=== PATIENT | female | born 1950 | race Caucasian/White ===

== ENCOUNTER 2019-08-08 07:33 | Emergency (ER) | payer OTHER, SELFPAY ==
--- NOTE | 2019-08-08 07:40 | ED_ITS ---
HPI - Female Genitourinary General Chief complaint: Urogenital-Female Stated complaint: ovarian cyst right side problem Time Seen by Provider: 08/08/19 07:33 Source: patient and family Mode of arrival: Ambulatory Limitations: no limitations History of Present Illness HPI Narrative: 61-year-old female nonsmoker with history of hypertension and a known large right ovarian cyst presents with a chief complaint of a sudden onset right lower quadrant and some right flank pain since last night. Patient has been nauseated but denies any vomiting. She states that at times her pain is worse with changing position and other times it seems to have a mind of its own. It does remind her of prior experiences with ovarian cyst pain, the last visit to an emergency department was in March at [facility]. She is followed by solar energy consultant and designer at the [facility] and most recently her cyst was found to be 5 cm per the patient. She states that urinating and bowel movements seem to worsen her symptoms as well MD Complaint: pelvic pain Onset (ago): hour(s) Location: RLQ Female Urogenital Radiation: R Flank Severity: severe Severity scale (1-10): 8 Quality: Sharp Duration: intermittent Relieving factors: none Exacerbating factors: urination and movement Urinary symptoms: Flank Pain Patient : No Related Data Home Medications Medication Instructions Recorded Confirmed ascorbate calcium (vitamin C) 500 1 gram PO Q6H 09/06/18 09/06/18 mg tablet ascorbic acid (vitamin C) 1,000 mg 1 gram PO Q6H 09/06/18 09/06/18 tablet aspirin 81 mg tablet,delayed 81 mg PO DAILY 09/06/18 09/06/18 release cholecalciferol (vitamin D3) 50 2,000 unit PO DAILY 09/06/18 09/06/18 mcg (2,000 unit) capsule fenofibrate micronized 134 mg 134 mg PO DAILY 09/06/18 08/08/19 capsule lovastatin 40 mg tablet 40 mg PO DAILY 09/06/18 08/08/19 mecobalamin (vitamin B12) 1,000 1,000 mcg SL DAILY 09/06/18 09/06/18 mcg disintegrating tablet,sublingual multivitamin 1 tab PO DAILY 09/06/18 09/06/18 valacyclovir 500 mg tablet 500 mg PO DAILY 09/06/18 09/06/18 losartan-hydrochlorothiazide 0.5 tab PO DAILY 08/08/19 08/08/19 Previous Rx's Medication Instructions Recorded ketorolac 10 mg PO Q6H PRN #14 tab 08/08/19 ondansetron 4 mg PO TID-QID PRN #10 tab 08/08/19 Allergies Allergy/AdvReac Type Severity Reaction Status Date / Time Penicillins Allergy Severe trouble Verified 08/08/19 07:43 breathing Review of Systems Constitutional Constitutional: Denies chills, Denies fatigue, Denies fever(s), Denies frequent falls, Denies lethargy and Denies weakness Eyes Eyes: Denies change in vision, Denies eye discharge, Denies irritation and Denies loss of vision ENT Ears, Nose, Mouth, and Throat: Denies change in voice, Denies dizziness, Denies neck pain, Denies sore throat and Denies throat swelling Cardiovascular Cardiovascular: Denies chest pain, Denies irregular heart rhythm, Denies lightheadedness, Denies palpitations, Denies dyspnea, Denies dyspnea on exertion and Denies orthopnea Respiratory Respiratory: Denies cough, Denies dyspnea, Denies dyspnea on exertion and Denies wheezing Gastrointestinal Gastrointestinal: Denies abdominal pain, Denies change in bowel habits, Denies diarrhea, Reports nausea and Denies vomiting Genitourinary Genitourinary: Denies hematuria, Reports pelvic pain, Reports flank pain, Denies urinary incontinence and Denies urinary urgency Musculoskeletal Musculoskeletal: Denies back pain, Denies muscle weakness, Denies neck pain, Denies numbness and Denies tingling Integumentary/Breasts Skin/Breast: Denies pruritus, Denies erythema, Denies rash and Denies wounds Neurologic Neurologic: Denies behavioral changes, Denies confusion, Denies dizziness, Denies frequent falls, Denies loss of vision, Denies numbness, Denies tingling and Denies weakness Psychiatric Psychiatric: Denies anxiety, Denies behavioral changes, Denies confusion, Denies depression, Denies homicidal ideation and Denies suicidal ideation Endocrine Endocrine: Denies fatigue, Denies flushing and Denies palpitations Hematologic/Lymphatic Hematologic/Lymphatic: Denies easy bruising Allergic/Immunologic Allergic/Immunologic: Denies urticaria, Denies throat swelling and Denies wheezing Patient History Medical History (Updated 08/08/19 @ 11:09 by Min Iglesias DO) Ovarian cyst (Acute) Surgical History (Updated 08/08/19 @ 08:06 by Min Iglesias DO) History of section (Acute) Hx of tubal ligation (Acute) marital status: housing: house Smoking Status: Never smoker Substance Use Type: does not use Exam Narrative Exam Narrative: GENERAL: [69] year old patient appears stated age. Well- nourished, well-developed patient, in mild distress. HEAD: Atraumatic. Normocephalic. EYES: Pupils equal round and reactive. Extraocular motions intact. No scleral icterus. No injection or drainage. ENT: Nose without bleeding, purulent drainage. Throat without erythema, tonsillar hypertrophy or exudate. Airway patent. NECK: Trachea midline. Non tender CARDIOVASCULAR: Regular rate and rhythm without murmurs, gallops, or rubs. RESPIRATORY: Clear to auscultation. Breath sounds equal bilaterally. No wheezes, rales, or rhonchi. GASTROINTESTINAL: Abdomen soft, tender in RLQ, nondistended. EXTREMITIES: No edema or joint tenderness. BACK: Nontender without deformity or crepitance. No flank tenderness. NEURO: AOx3. SKIN: No rash or erythema of visible areas Initial Vital Signs Initial Vital Signs: Vital Signs Temperature 97.8 F 08/08/19 07:43 Pulse Rate 72 08/08/19 07:43 Respiratory Rate 14 08/08/19 07:43 Blood Pressure 160/85 H 08/08/19 07:43 Pulse Oximetry 98 08/08/19 07:43 Course Orders Ordered: ED Orders 08/08/19 07:50 US pelvic complete Stat 08/08/19 08:10 Basic Metabolic Panel Stat Complete Blood Count AUTO DIFF Stat Discontinued Medications Sodium Chloride (Normal Saline 0.9%) 1,000 mls @ 1,000 mls/hr IV BOLUS ONE Stop: 08/08/19 08:48 Last Infusion: 08/08/19 10:10 Dose: 0 mls/hr Documented by: Admin: 08/08/19 08:02 Dose: 1,000 mls/hr Documented by: LILLY Ketorolac Tromethamine (Toradol) 15 mg IV NOW ONE Stop: 08/08/19 07:50 Last Admin: 08/08/19 08:06 Dose: 15 mg Documented by: LILLY Ondansetron HCl (Zofran) 4 mg IV Q4HR PRN PRN Reason: Nausea And Vomiting Last Admin: 08/08/19 08:01 Dose: 4 mg Documented by: LILLY Reevaluation(s) Reevaluation #1: patient feeling better after toradol Discussion with patient's own solar energy consultant and designer. Today's findings are very similar to her prior episodes and imaging is suggestive of no change that would prompt urgent evaluation. Time: 08:57 Vital Signs Vital signs: Vital Signs - 8 hr 08/08/19 07:43 08/08/19 11:12 Temperature 97.8 F Pulse Rate 72 58 L Respiratory Rate 14 18 Blood Pressure 160/85 H Blood Pressure [Right Arm] 123/72 Pulse Oximetry 98 99 MDM - Female Genitourinary Lab Data Result diagrams: 08/08/19 08:10 08/08/19 08:10 Labs: Lab Results 08/08/19 08/08/19 Range/Units 08:10 08:10 WBC 6.6 (4.5-11.0) X10^3/uL RBC 4.18 (4.0-5.2) X10^6/uL Hgb 13.6 (12.0-16.0) g/dL Hct 39.9 (36-46) % MCV 95.3 (80-100) fL MCH 32.5 (26-34) PG MCHC 34.1 (30-36) % RDW 13.2 (11.6-14.8) % Plt Count 220 (150-400) X10^3/uL Neut % (Auto) 72.3 (50-75) % Lymph % (Auto) 18.2 L (25-40) % Morton % (Auto) 7.2 (3-14) % Eos % (Auto) 2.0 (2-4) % Baso % (Auto) 0.3 (0-2) % Neut # (Auto) 4800 (0168-4674) /uL Lymph # (Auto) 1200 (3636-4682) /uL Morton # (Auto) 500 (0-900) /uL Eos # (Auto) 100 (0-450) /uL Baso # (Auto) 0 (0-100) /uL Sodium 142 (137-145) mmol/L Potassium 4.2 (3.4-5.1) mmol/L Chloride 107 (98-107) mmol/L Carbon Dioxide 28 (22-32) mmol/L BUN 20 H (7-17) mg/dL Creatinine 0.90 (0.52-1.04) mg/dL Estimated GFR > 60.0 (>60) mL/min BUN/Creatinine Ratio 22.2 H (6-22) Glucose 110 (80-110) mg/dL Calcium 11.2 H (8.4-10.2) mg/dL Urine Dip Bedside Urine Glucose Negative Bedside Urine Bilirubin - Negative Bedside Urine Ketone - Negative Urine Specific Matthews 1.015 Bedside Urine Occult Blood - Negative Bedside Urine pH 5.5 Bedside Urine Protein - Negative Bedside Urine Urobilinogen - Negative Bedside Urine Nitrite - Negative Bedside Urine Leukocytes - Negative Esterase Imaging Data US - RESPIRATORY THERAPY MANAGER: Radiologist's Impression: Rachell Zapata 69 F [address] [address] Ultrasound Report Signed Patient: Rachell ZapataMR#: [id number] : 1950cct:[id number] Age/Sex: 69 / FDate of Service: 08/08/19 Loc: ED Accession Number: [id number] Procedure: US pelvic complete Ordering Provider: Min Iglesias D.O. PROCEDURE: US PELVIC COMPLETE INDICATIONS: SEVER RLQ PAIN WITH HISTORY OF CYSTS TECHNIQUE: Real-time scanning was performed of the pelvic organs, with image documentation. Additional endovaginal scanning was necessary due to incomplete visualization of the adnexal and endometrial structures by transabdominal scanning. COMPARISON: None. FINDINGS: Transabdominal scanning: Limited scanning through the kidneys shows no hydronephrosis. No pathologic free abdominal or pelvic fluid. Endovaginal scanning: Uterus: Uterus is normal in size at 3.7 x 2.7 x 3.7 cm. The endometrium measures 15 mm in combined thickness. Ovaries: Ovaries are not well visualized. There is a cystic mass in the midline of the lower pelvis measuring 49 x 35 x 39 mm. There is questionable appearance of nodularity noted along the lateral wall. IMPRESSION: 1. Cystic pelvic mass as described above with questionable nodular focus. Given patient's age, size of cystic mass and questionable nodularity, cystic neoplasm cannot be definitively excluded. RESPIRATORY THERAPY MANAGER consult as well as further evaluation with CT or MRI is recommended. Dictated by: Rachelle Garcia M.D. on 08/08/2019 at 9:08 Discharge Plan Departure Patient Disposition: Home Clinical Impression: Pain of ovary Discharge Date/Time: 08/08/19 11:18 Instructions: DI for Pelvic Pain Activity Restrictions/Additional Instructions: *You have been diagnosed with [right lower quadrant pain secondary to ovarian pain.I've spoken with your solar energy consultant and designer whom is very comfortable with your discharge and looks forward to seeing you on Sunday] *What to do: *Take medications as directed *Follow up with your solar energy consultant and designer on Sunday as planned *Return to ER if you should have any new, worsening or concerning symptoms Prescriptions: New ketorolac 10 mg tablet 10 mg PO Q6H PRN (Reason: pain) Qty: 14 RF: 0 ondansetron 4 mg tablet,disintegrating 4 mg PO TID-QID PRN (Reason: nausea and vomiting) Qty: 10 RF: 0 No Action multivitamin [Daily Multi-Vitamin] tablet 1 tab PO DAILY RF: 0 ascorbic acid (vitamin C) 1,000 mg tablet 1 gram PO Q6H RF: 0 lovastatin 40 mg tablet 40 mg PO DAILY RF: 0 valacyclovir 500 mg tablet 500 mg PO DAILY RF: 0 aspirin [Aspir-81] 81 mg tablet,delayed release (DR/EC) 81 mg PO DAILY RF: 0 fenofibrate micronized 134 mg capsule 134 mg PO DAILY RF: 0 ascorbate calcium (vitamin C) 500 mg tablet 1 gram PO Q6H RF: 0 cholecalciferol (vitamin D3) 2,000 unit capsule 2,000 unit PO DAILY RF: 0 mecobalamin (vitamin B12) 1,000 mcg tablet,disintegrating 1,000 mcg SL DAILY RF: 0 losartan-hydrochlorothiazide 100-25 mg tablet 0.5 tab PO DAILY RF: 0
[2019-08-08 07:43] VITALS: BP 160/85; PULSE 72; RESP 14; TEMP 36.6; O2SAT 98; BMI 31.1
--- NOTE | 2019-08-08 07:50 | DI.US.S_ITS ---
PROCEDURE: US PELVIC COMPLETE INDICATIONS: SEVER RLQ PAIN WITH HISTORY OF CYSTS TECHNIQUE: Real-time scanning was performed of the pelvic organs, with image documentation. Additional endovaginal scanning was necessary due to incomplete visualization of the adnexal and endometrial structures by transabdominal scanning. COMPARISON: None. FINDINGS: Transabdominal scanning: Limited scanning through the kidneys shows no hydronephrosis. No pathologic free abdominal or pelvic fluid. Endovaginal scanning: Uterus: Uterus is normal in size at 3.7 x 2.7 x 3.7 cm. The endometrium measures 15 mm in combined thickness. Ovaries: Ovaries are not well visualized. There is a cystic mass in the midline of the lower pelvis measuring 49 x 35 x 39 mm. There is questionable appearance of nodularity noted along the lateral wall. IMPRESSION: 1. Cystic pelvic mass as described above with questionable nodular focus. Given patient's age, size of cystic mass and questionable nodularity, cystic neoplasm cannot be definitively excluded. TAX LAWYER consult as well as further evaluation with CT or MRI is recommended. Dictated by: Rachelle Garcia M.D. on 08/08/2019 at 9:08 Approved by: Rachelle Garcia M.D. on 08/08/2019 at 9:33
[2019-08-08] MEDS: ONDANSETRON 4 MG/2 ML INJ IV (08:01)
[2019-08-08] MEDS: SODIUM CHLORIDE 0.9% 1,000 ML 1000 ML IV (08:02)
[2019-08-08] MEDS: KETOROLAC 60 MG/2 ML VIAL 15 MG IV (08:06)
[2019-08-08 08:22] LABS: Add Manual Diff / Slide Review NO; Basophils Absolute Auto 0 /uL (0-100); Basophils Percent Auto 0.3 % (0-2); Eosinophils Absolute Auto 100 /uL (0-450); Hematocrit 39.9 % (36-46); Hemoglobin 13.6 g/dL (12.0-16.0); Lymphocytes Absolute Auto 1200 /uL (1100-4500); Lymphocytes Percent Auto 18.2 % (25-40); Mean Corpuscular HGB Conc 34.1 % (30-36); Mean Corpuscular Hemoglobin 32.5 PG (26-34); Mean Corpuscular Volume 95.3 fL (80-100); Monocytes Absolute Auto 500 /uL (0-900); Monocytes Percent Auto 7.2 % (3-14); Neutrophils Absolute Auto 4800 /uL (1500-7000); Neutrophils Percent Auto 72.3 % (50-75); Platelet Count 220 X10^3/uL (150-400); Red Blood Cell Count 4.18 X10^6/uL (4.0-5.2); Red Cell Distribution Width 13.2 % (11.6-14.8); White Blood Cell Count 6.6 X10^3/uL (4.5-11.0)
[2019-08-08 08:29] LABS: BUN Creatinine Ratio 22.2 (6-22); Blood Urea Nitrogen 20 mg/dL (7-17); Calcium 11.2 mg/dL (8.4-10.2); Carbon Dioxide 28 mmol/L (22-32); Chloride 107 mmol/L (98-107); Estimated Glomerular Filt Rate > 60.0 mL/min (>60); Glucose 110 mg/dL (80-110); HEMOLYSIS < 15 (0-50); Potassium 4.2 mmol/L (3.4-5.1); Sodium 142 mmol/L (137-145)
[2019-08-08 11:12] VITALS: BP 123/72; PULSE 58; RESP 18; O2SAT 99
== END 2019-08-08 11:18 | disposition home or self-care (01) ==
PROVIDERS: Emergency Provider Emergency Medicine
DX: N94.89 Other specified conditions associated with female genital organs and menstrual cycle (principal); R10.31 Right lower quadrant pain
CPT/HCPCS: 36415; 76830; 76856; 80048; 81003; 85025; 96361; 96374; 96375; 99284; J1885; J2405

== ENCOUNTER 2019-11-28 06:36 | Emergency (ER) | payer OTHER, SELFPAY ==
[2019-11-28] VITALS (7 sets, daily range): BP systolic 113–155; BP diastolic 66–101; PULSE 54–64; RESP 16–18; TEMP 36.4; O2SAT 93–99; BMI 31.1
--- NOTE | 2019-11-28 07:01 | ED_ITS ---
HPI - Abdominal Pain <Min IglesiasDO - Last Filed: 11/29/19 03:58> General Chief Complaint: Abdominal Pain Stated Complaint: ovarian cyst right side Time Seen by Provider: 11/28/19 06:37 Source: patient Mode of arrival: Ambulatory Limitations: no limitations History of Present Illness HPI narrative: 69-year-old female nonsmoker with history of hypertension and a known right ovarian ?cyst? presents with a chief complaint of relatively sudden onset right lower quadrant pain that started yesterday and radiates to her back. She states this feels similar to prior episodes of when her cyst acts up. She states her pain is worse with motion and improves with rest. She denies any fever, chills nor nausea or vomiting. She denies dysuria, frequency or urgency. She was seen here in the end of July and pelvic ultrasound noted a mass versus cyst and recommended advanced imaging in the form of CT or MRI. That is yet to happen. She has been NPO since yesterday afternoon except for some crackers last evening MD complaint: abdominal pain Onset (ago): hour(s) Pain Consistency: intermittent Location: RLQ Severity: severe Quality: cramping and aching Radiation: R flank Relieving factors: rest Exacerbating factors: movement Associated symptoms: denies other symptoms Related Data Home Medications Medication Instructions Recorded Confirmed aspirin 81 mg tablet,delayed 81 mg PO BEDTIME 09/06/18 11/28/19 release cholecalciferol (vitamin D3) 50 2,000 unit PO BEDTIME 09/06/18 11/28/19 mcg (2,000 unit) capsule fenofibrate micronized 134 mg 134 mg PO BEDTIME 09/06/18 11/28/19 capsule lovastatin 40 mg tablet 40 mg PO BEDTIME 09/06/18 11/28/19 multivitamin 1 tab PO BEDTIME 09/06/18 11/28/19 valacyclovir 500 mg tablet 500 mg PO BEDTIME 09/06/18 11/28/19 losartan-hydrochlorothiazide 0.5 tab PO BEDTIME 08/08/19 11/28/19 Previous Rx's Medication Instructions Recorded ketorolac 10 mg PO Q6H PRN #14 tab 08/08/19 ketorolac 10 mg PO Q6H PRN 5 Days #20 tab 11/28/19 ondansetron HCl [Zofran] 4 mg PO Q6H PRN #15 tab 11/28/19 oxycodone-acetaminophen [Percocet] 1 tab PO Q8H PRN #12 tab 11/28/19 Allergies Allergy/AdvReac Type Severity Reaction Status Date / Time Penicillins Allergy Severe trouble Verified 11/28/19 07:34 breathing Review of Systems <Min Iglesias DO - Last Filed: 11/29/19 03:58> Constitutional Constitutional: Denies chills, Denies fatigue, Denies fever(s), Denies frequent falls, Denies lethargy and Denies weakness Eyes Eyes: Denies change in vision, Denies eye discharge, Denies irritation and Denies loss of vision ENT Ears, Nose, Mouth, and Throat: Denies change in voice, Denies dizziness, Denies neck pain, Denies sore throat and Denies throat swelling Cardiovascular Cardiovascular: Denies chest pain, Denies irregular heart rhythm, Denies lightheadedness, Denies palpitations, Denies dyspnea, Denies dyspnea on exertion and Denies orthopnea Respiratory Respiratory: Denies cough, Denies dyspnea, Denies dyspnea on exertion and Denies wheezing Gastrointestinal Gastrointestinal: Reports abdominal pain, Denies change in bowel habits, Denies diarrhea, Denies nausea and Denies vomiting Musculoskeletal Musculoskeletal: Denies neck pain and Denies numbness Integumentary/Breasts Skin/Breast: Denies pruritus, Denies erythema, Denies rash and Denies wounds Neurologic Neurologic: Denies behavioral changes, Denies confusion, Denies dizziness, Denies frequent falls, Denies loss of vision, Denies numbness and Denies weakness Psychiatric Psychiatric: Denies anxiety, Denies behavioral changes, Denies confusion, Denies depression, Denies homicidal ideation and Denies suicidal ideation Endocrine Endocrine: Denies fatigue, Denies flushing and Denies palpitations Hematologic/Lymphatic Hematologic/Lymphatic: Denies easy bruising Allergic/Immunologic Allergic/Immunologic: Denies urticaria, Denies throat swelling and Denies wheezing Patient History <Min Iglesias DO - Last Filed: 11/29/19 03:58> Medical History Ovarian cyst (Acute) Surgical History History of section (Acute) Hx of tubal ligation (Acute) Social History marital status: housing: house Smoking Status: Never smoker Smoking Status: Never smoker Substance Use Type: does not use Exam <Min Iglesias DO - Last Filed: 11/29/19 03:58> Narrative Exam Narrative: GENERAL: [69] year old patient appears stated age. Well-n ourished, well-developed patient, in mild distress. HEAD: Atraumatic. Normocephalic. EYES: Pupils equal round and reactive. Extraocular motions intact. No scleral icterus. No injection or drainage. ENT: Nose without bleeding, purulent drainage. Throat without erythema, tonsillar hypertrophy or exudate. Airway patent. NECK: Trachea midline. Non tender CARDIOVASCULAR: Regular rate and rhythm without murmurs, gallops, or rubs. RESPIRATORY: Clear to auscultation. Breath sounds equal bilaterally. No wheezes, rales, or rhonchi. GASTROINTESTINAL: Abdomen soft, tender in RLQ, nondistended. EXTREMITIES: No edema or joint tenderness. BACK: Mild R flank tenderness NEURO: AOx3. SKIN: No rash or erythema of visible areas Initial Vital Signs Initial Vital Signs: Vital Signs Temperature 97.5 F L 11/28/19 06:47 Pulse Rate 64 11/28/19 06:47 Respiratory Rate 16 11/28/19 06:47 Blood Pressure 155/101 H 11/28/19 06:47 Pulse Oximetry 93 11/28/19 06:47 <Alonso Ng MD - Last Filed: 11/28/19 21:36> Initial Vital Signs Initial Vital Signs: Vital Signs Temperature 97.5 F L 11/28/19 06:47 Pulse Rate 64 11/28/19 06:47 Respiratory Rate 16 11/28/19 06:47 Blood Pressure 155/101 H 11/28/19 06:47 Pulse Oximetry 93 11/28/19 06:47 Course <Min Iglesias DO - Last Filed: 11/29/19 03:58> Orders Ordered: Discontinued Medications Hydromorphone HCl (Dilaudid) 1 mg IV NOW ONE Stop: 11/28/19 08:06 Last Admin: 11/28/19 08:14 Dose: 1 mg Documented by: SHEILA Hydromorphone HCl (Dilaudid) 1 mg IV NOW ONE Stop: 11/28/19 09:36 Last Admin: 11/28/19 12:12 Dose: Not Given Documented by: TERESA Hydromorphone HCl (Dilaudid) 1 mg IV NOW ONE Stop: 11/28/19 11:56 Last Admin: 11/28/19 12:09 Dose: 1 mg Documented by: TERESA Sodium Chloride (Normal Saline 0.9%) 1,000 mls @ 150 mls/hr IV CONT ANYA Last Infusion: 11/28/19 08:53 Dose: 0 mls/hr Documented by: Infusion: 11/28/19 07:54 Dose: 999 mls/hr Documented by: Admin: 11/28/19 07:21 Dose: 150 mls/hr Documented by: SHEILA Ketorolac Tromethamine (Toradol) 15 mg IV NOW ONE Stop: 11/28/19 06:52 Last Admin: 11/28/19 07:21 Dose: 15 mg Documented by: SHEILA Ondansetron HCl (Zofran) 4 mg IV NOW ONE Stop: 11/28/19 06:52 Last Admin: 11/28/19 07:21 Dose: 4 mg Documented by: SHEILA Vital Signs Vital signs: Vital Signs - 8 hr 11/28/19 06:47 11/28/19 07:32 11/28/19 08:33 Temperature 97.5 F L Pulse Rate 64 60 60 Respiratory Rate 16 16 16 Blood Pressure 155/101 H Blood Pressure [Left Arm] 145/73 H 113/75 Pulse Oximetry 93 99 98 11/28/19 09:08 11/28/19 10:00 11/28/19 11:22 Temperature Pulse Rate 60 58 L 57 L Respiratory Rate 16 18 Blood Pressure Blood Pressure [Left Arm] 147/70 H 131/66 130/67 Pulse Oximetry 98 95 94 <Alonso Ng MD - Last Filed: 11/28/19 21:36> Course Course Narrative: 11:08: Per the radiation protection technician the patient has blood flow peripherally. There is no evidence of a torsion at this time. Her cyst appears to be relatively clear 1119: Dr. Spaulding the patient's kindergarten assistant at [facility] in [facility] has been called to discuss the patient and how to proceed. At this time the patient states that her pain is 6/10 in intensity. The patient was seen in July and an ultrasound of the on the revealed that she had the cystic mass. She states that she has had the cystic mass for over a year and that her kindergarten assistant was aware of that. Her ovarian cysts is 5.8 x 3.4 x 4.2 cm. Her ultrasound does not reveal any evidence of a torsion. The rest of her laboratory tests are within normal limits. With distraction and discussing with the patient palpation reveals that she has mild tenderness without any significant guarding. Her lungs are clear and symmetrical. I will discuss with the patient's kindergarten assistant pain management and process for further evaluation. Orders Ordered: Discontinued Medications Hydromorphone HCl (Dilaudid) 1 mg IV NOW ONE Stop: 11/28/19 08:06 Last Admin: 11/28/19 08:14 Dose: 1 mg Documented by: SHEILA Hydromorphone HCl (Dilaudid) 1 mg IV NOW ONE Stop: 11/28/19 09:36 Last Admin: 11/28/19 12:12 Dose: Not Given Documented by: TERESA Hydromorphone HCl (Dilaudid) 1 mg IV NOW ONE Stop: 11/28/19 11:56 Last Admin: 11/28/19 12:09 Dose: 1 mg Documented by: TERESA Sodium Chloride (Normal Saline 0.9%) 1,000 mls @ 150 mls/hr IV CONT ANYA Last Infusion: 11/28/19 08:53 Dose: 0 mls/hr Documented by: Infusion: 11/28/19 07:54 Dose: 999 mls/hr Documented by: Admin: 11/28/19 07:21 Dose: 150 mls/hr Documented by: SHEILA Ketorolac Tromethamine (Toradol) 15 mg IV NOW ONE Stop: 11/28/19 06:52 Last Admin: 11/28/19 07:21 Dose: 15 mg Documented by: SHEILA Ondansetron HCl (Zofran) 4 mg IV NOW ONE Stop: 11/28/19 06:52 Last Admin: 11/28/19 07:21 Dose: 4 mg Documented by: SHEILA Vital Signs Vital signs: Vital Signs - 8 hr 11/28/19 06:47 11/28/19 07:32 11/28/19 08:33 Temperature 97.5 F L Pulse Rate 64 60 60 Respiratory Rate 16 16 16 Blood Pressure 155/101 H Blood Pressure [Left Arm] 145/73 H 113/75 Pulse Oximetry 93 99 98 11/28/19 09:08 11/28/19 10:00 11/28/19 11:22 Temperature Pulse Rate 60 58 L 57 L Respiratory Rate 16 18 Blood Pressure Blood Pressure [Left Arm] 147/70 H 131/66 130/67 Pulse Oximetry 98 95 94 MDM - Abdominal Pain <Min Iglesias DO - Last Filed: 11/29/19 03:58> Lab Data Result diagrams: 11/28/19 07:49 11/28/19 07:49 Labs: Lab Results 11/28/19 11/28/19 Range/Units 07:49 07:49 WBC 7.0 (4.5-11.0) X10^3/uL RBC 3.96 L (4.0-5.2) X10^6/uL Hgb 13.2 (12.0-16.0) g/dL Hct 37.9 (36-46) % MCV 95.9 (80-100) fL MCH 33.4 (26-34) PG MCHC 34.9 (30-36) % RDW 12.9 (11.6-14.8) % Plt Count 209 (150-400) X10^3/uL Neut % (Auto) 83.1 H (50-75) % Lymph % (Auto) 10.5 L (25-40) % Spencer % (Auto) 5.9 (3-14) % Eos % (Auto) 0.1 L (2-4) % Baso % (Auto) 0.4 (0-2) % Neut # (Auto) 5800 (5007-3420) /uL Lymph # (Auto) 700 L (5438-3882) /uL Spencer # (Auto) 400 (0-900) /uL Eos # (Auto) 0 (0-450) /uL Baso # (Auto) 0 (0-100) /uL Sodium 136 L (137-145) mmol/L Potassium 4.5 (3.4-5.1) mmol/L Chloride 105 (98-107) mmol/L Carbon Dioxide 23 (22-32) mmol/L BUN 31 H (7-17) mg/dL Creatinine 1.04 (0.52-1.04) mg/dL Estimated GFR 52.7 L (>60) mL/min BUN/Creatinine Ratio 29.8 H (6-22) Glucose 127 H (80-110) mg/dL Calcium 10.5 H (8.4-10.2) mg/dL Total Bilirubin 0.6 (0.2-1.3) mg/dL AST 34 (14-36) IU/L ALT 25 (<35) IU/L Alkaline Phosphatase 54 (38-126) U/L Total Protein 6.8 (6.3-8.2) g/dL Albumin 4.1 (3.5-5.0) g/dL Globulin 2.7 (1.7-4.1) g/dL Albumin/Globulin Ratio 1.5 (1.0-2.8) Lipase 108 (23-300) U/L Point of care testing: Urine Dip Bedside Urine Glucose Negative Bedside Urine Bilirubin + 1 Bedside Urine Ketone +/- 5 Urine Specific [place] 1.030 Bedside Urine Occult Blood - Negative Bedside Urine pH 5.5 Bedside Urine Protein +/- 15 Bedside Urine Urobilinogen - Negative Bedside Urine Nitrite - Negative Bedside Urine Leukocytes - Negative Esterase <Alonso Ng MD - Last Filed: 11/28/19 21:36> Lab Data Labs: Lab Results 11/28/19 11/28/19 Range/Units 07:49 07:49 WBC 7.0 (4.5-11.0) X10^3/uL RBC 3.96 L (4.0-5.2) X10^6/uL Hgb 13.2 (12.0-16.0) g/dL Hct 37.9 (36-46) % MCV 95.9 (80-100) fL MCH 33.4 (26-34) PG MCHC 34.9 (30-36) % RDW 12.9 (11.6-14.8) % Plt Count 209 (150-400) X10^3/uL Neut % (Auto) 83.1 H (50-75) % Lymph % (Auto) 10.5 L (25-40) % Spencer % (Auto) 5.9 (3-14) % Eos % (Auto) 0.1 L (2-4) % Baso % (Auto) 0.4 (0-2) % Neut # (Auto) 5800 (3655-6803) /uL Lymph # (Auto) 700 L (2235-8548) /uL Spencer # (Auto) 400 (0-900) /uL Eos # (Auto) 0 (0-450) /uL Baso # (Auto) 0 (0-100) /uL Sodium 136 L (137-145) mmol/L Potassium 4.5 (3.4-5.1) mmol/L Chloride 105 (98-107) mmol/L Carbon Dioxide 23 (22-32) mmol/L BUN 31 H (7-17) mg/dL Creatinine 1.04 (0.52-1.04) mg/dL Estimated GFR 52.7 L (>60) mL/min BUN/Creatinine Ratio 29.8 H (6-22) Glucose 127 H (80-110) mg/dL Calcium 10.5 H (8.4-10.2) mg/dL Total Bilirubin 0.6 (0.2-1.3) mg/dL AST 34 (14-36) IU/L ALT 25 (<35) IU/L Alkaline Phosphatase 54 (38-126) U/L Total Protein 6.8 (6.3-8.2) g/dL Albumin 4.1 (3.5-5.0) g/dL Globulin 2.7 (1.7-4.1) g/dL Albumin/Globulin Ratio 1.5 (1.0-2.8) Lipase 108 (23-300) U/L Point of care testing: Urine Dip Bedside Urine Glucose Negative Bedside Urine Bilirubin + 1 Bedside Urine Ketone +/- 5 Urine Specific [place] 1.030 Bedside Urine Occult Blood - Negative Bedside Urine pH 5.5 Bedside Urine Protein +/- 15 Bedside Urine Urobilinogen - Negative Bedside Urine Nitrite - Negative Bedside Urine Leukocytes - Negative Esterase Discharge Plan Departure Patient Disposition: Home Clinical Impression: Abdominal pain, acute, right lower quadrant, Complex cyst of right ovary Discharge Date/Time: 11/28/19 12:44 Instructions: DI for Ovarian Cyst, DI for Pelvic Pain Activity Restrictions/Additional Instructions: 1. Call Dr. Spaulding, your kindergarten assistant to schedule an appointment on Sunday to schedule an oophorectomy. 2. Continue to take the Toradol 10 mg every 6 hours for pain and discomfort 3. Take the Percocet 10/325 3 times a day as needed for severe pain and di scomfort 4. Take Zofran 4 mg 1-2 tablets 3 times a day as needed for persistent nausea and vomiting. 5. If you develop worsening pain and discomfort uncontrolled by the medications, fever, uncontrolled vomiting feelings of dizziness or passing-out you need to return to the emergency department. Prescriptions: New ketorolac 10 mg tablet 10 mg PO Q6H PRN (Reason: pain) 5 Days Qty: 20 RF: 0 oxycodone-acetaminophen [Percocet] 10-325 mg tablet 1 tab PO Q8H PRN (Reason: pain) Qty: 12 RF: 0 ondansetron HCl [Zofran] 4 mg tablet 4 mg PO Q6H PRN (Reason: nausea and vomiting) Qty: 15 RF: 0 No Action multivitamin [Daily Multi-Vitamin] tablet 1 tab PO BEDTIME RF: 0 lovastatin 40 mg tablet 40 mg PO BEDTIME RF: 0 valacyclovir 500 mg tablet 500 mg PO BEDTIME RF: 0 aspirin [Aspir-81] 81 mg tablet,delayed release (DR/EC) 81 mg PO BEDTIME RF: 0 fenofibrate micronized 134 mg capsule 134 mg PO BEDTIME RF: 0 cholecalciferol (vitamin D3) 2,000 unit capsule 2,000 unit PO BEDTIME RF: 0 losartan-hydrochlorothiazide 100-25 mg tablet 0.5 tab PO BEDTIME RF: 0 ketorolac 10 mg tablet 10 mg PO Q6H PRN (Reason: pain) Qty: 14 RF: 0 <Alonso Ng MD - Last Filed: 11/28/19 21:36> Sign Out Provider Sign Out Attestation: 0931: Report provided by Dr. Iglesias. The patient remains very painful and uncomfortable after 1 mg of Dilaudid for her pain and discomfort. An ultrasound of her pelvis will be obtained to rule out torsion of a right ovary with cystic mass. CT abdomen and pelvis reveals no appendix is seen, either normal or abnormal. No focal right lower quadrant inflammatory changes are identified. The complex right ovarian mass is again seen. If there is clinical concern for an acute abnormality of this mass for example torsion please consider a pelvic ultrasound for further evaluation. Concern is raised for a cystic ovarian neoplasm a patient of this age. If clinically appropriate please consider gynecology consult patient in gynecological protocol MRI with out and with contrast for further evaluation assuming that there is no contraindication. Incidental note is made of a small hiatal hernia. Fatty liver infiltration. Small yanely containing periumbilical hernia. Diverticulosis without findings of active diverticulitis. Focal L4-L5 degenerative changes. 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 The patient has a QS wave in lead III and AVF suggestive of an old inferior wall CO at age indeterminate. She also has a Q wave in lead V1. T-waves are inverted in lead V1 and lead III. There are no other acute diagnostic ST segment changes. Over all the patient has low voltage arm criteria. 1158: The patient states that she is having pain that is 6/10 in intensity. She was informed that her kindergarten assistant from [facility] has been called since he knows all about her cystic mass for over 1 year. She was informed that he is in a will call us back when he is done. His phone number is [phone] I discussed the patient with Dr. Spaulding her kindergarten assistant who recommended that we prescribed pain medication and he will see her in the office on on Sunday and schedule her to have it resected. I will discuss these recommendations with the patient. Her urine dipstick is negative.
[2019-11-28] MEDS: SODIUM CHLORIDE 0.9% 1,000 ML 150 ML IV (07:21)
[2019-11-28] MEDS: KETOROLAC 60 MG/2 ML VIAL 15 MG IV (07:21)
[2019-11-28] MEDS: ONDANSETRON 4 MG/2 ML INJ IV (07:21)
[2019-11-28] MEDS: HYDROMORPHONE 1 MG INJ IV ×2 (08:14→12:09)
[2019-11-28 08:19] LABS: Add Manual Diff / Slide Review NO; Basophils Absolute Auto 0 /uL (0-100); Basophils Percent Auto 0.4 % (0-2); Eosinophils Absolute Auto 0 /uL (0-450); Eosinophils Percent Auto 0.1 % (2-4); Hematocrit 37.9 % (36-46); Hemoglobin 13.2 g/dL (12.0-16.0); Lymphocytes Absolute Auto 700 /uL (1100-4500); Lymphocytes Percent Auto 10.5 % (25-40); Mean Corpuscular HGB Conc 34.9 % (30-36); Mean Corpuscular Hemoglobin 33.4 PG (26-34); Mean Corpuscular Volume 95.9 fL (80-100); Monocytes Absolute Auto 400 /uL (0-900); Monocytes Percent Auto 5.9 % (3-14); Neutrophils Absolute Auto 5800 /uL (1500-7000); Neutrophils Percent Auto 83.1 % (50-75); Platelet Count 209 X10^3/uL (150-400); Red Blood Cell Count 3.96 X10^6/uL (4.0-5.2); Red Cell Distribution Width 12.9 % (11.6-14.8)
[2019-11-28 08:22] LABS: Alanine Aminotransferase 25 IU/L (<35); Albumin 4.1 g/dL (3.5-5.0); Albumin Globulin Ratio 1.5 (1.0-2.8); Alkaline Phosphatase 54 U/L (38-126); Aspartate Aminotransferase 34 IU/L (14-36); BUN Creatinine Ratio 29.8 (6-22); Bilirubin Total 0.6 mg/dL (0.2-1.3); Blood Urea Nitrogen 31 mg/dL (7-17); Calcium 10.5 mg/dL (8.4-10.2); Carbon Dioxide 23 mmol/L (22-32); Chloride 105 mmol/L (98-107); Estimated Glomerular Filt Rate 52.7 mL/min (>60); Globulin 2.7 g/dL (1.7-4.1); Glucose 127 mg/dL (80-110); HEMOLYSIS < 15 (0-50); Lipase 108 U/L (23-300); Potassium 4.5 mmol/L (3.4-5.1); Sodium 136 mmol/L (137-145); Total Protein 6.8 g/dL (6.3-8.2)
--- NOTE | 2019-11-28 08:43 | DI.CT.S_ITS ---
PROCEDURE: CT ABDOMEN PELVIS W CON INDICATIONS: severe RLQ pain, known ovarian mass TECHNIQUE: After the administration of intravenous contrast, 5 mm thick sections acquired from the diaphragm to the symphysis. 5 mm coronal and sagittal reformats were acquired. For radiation dose reduction, the following was used: automated exposure control, adjustment of mA and/or kV according to patient size. COMPARISON: , , US PELVIC COMPLETE, 08/08/2019, 8:21. FINDINGS: Image quality: Excellent. ABDOMEN: Lung bases: Lung bases are clear. Heart size is normal. A small hiatal hernia is incidentally noted. Solid organs: Liver is normal in size and enhancement. The liver is normal in size and demonstrates no focal lesions. Gallbladder wall does not appear thickened. Biliary system is non dilated. Pancreas enhances normally. Spleen is normal in size and enhancement. No adrenal nodules. Kidneys demonstrate normal size and enhancement, without hydronephrosis. Small peripelvic cysts can be seen. Peritoneum and bowel: In this patient with this given history, scrutiny is given to the appendix. No appendix (either normal or abnormal) is identified on this study. No focal right lower quadrant inflammatory changes are seen. Bowel loops demonstrate normal wall thickness and caliber. No free fluid or air. Diverticulosis is seen, without findings of active diverticulitis. Nodes and vessels: No retroperitoneal or mesenteric adenopathy by size criteria. Aorta and inferior vena cava are normal in size. Atherosclerotic calcification is noted. Miscellaneous: A mild periumbilical hernia is seen, containing fat. PELVIS: Genitourinary: Bladder wall thickness is normal. The patient's previously identified right ovarian mass is again seen, which measures 5.8 x 3.4 x 4.2 cm on the current study. Enhancing solid elements are seen along the anterior aspect of this mass. Miscellaneous: No inguinal hernias or adenopathy. Bones: No suspicious bony lesions. No vertebral body compression fractures. This patient has transitional lumbar anatomy. For the purposes of this examination, the level with the last pair of ribs is considered to be T12. By this numbering scheme, the L5 level is transitional and highly sacralized. Grade 1/2 anterolisthesis is seen at the L4-L5 level. Focal degenerative change is seen at this level. No definite associated pars defects are seen. Milder degenerative changes are seen elsewhere. IMPRESSION: No appendix is seen, either normal or abnormal. No focal right lower quadrant inflammatory changes are identified. The complex right ovarian mass is again seen. If there is clinical concern for an acute abnormality of this mass (for example, torsion) please consider a pelvic ultrasound for further evaluation. Concern is raised for a cystic ovarian neoplasm a patient of this age. If clinically appropriate, please consider gynecology consultation and gynecological protocol MRI (without and with contrast) for further evaluation (assuming that there is no contraindication). Incidental note is made of: Small hiatal hernia Fatty liver infiltration Small fat containing periumbilical hernia Diverticulosis, without findings of active diverticulitis. Focal L4-L5 degenerative change Transitional lumbar anatomy, with a highly sacralized L5 level Dictated by: Juvencio Clifford M.D. on 11/28/2019 at 8:09 Approved by: Juvencio Clifford M.D. on 11/28/2019 at 8:18
--- NOTE | 2019-11-28 09:34 | DI.US.S_ITS ---
PROCEDURE: US PELVIC COMPLETE INDICATIONS: COMPLEX CYSTIC MASS R/O OV TORSION TECHNIQUE: Real-time transabdominal scanning was performed of the pelvic organs, with image documentation. COMPARISON: [facility], US, US PELVIC COMPLETE, 08/08/2019, 8:21. FINDINGS: Uterus: Uterus is normal in size at 4.6 x 3.1 x 4.0 cm. Endometrium is thickened measuring 10.0 mm in combined thickness. Microcystic changes noted in thickened endometrium. Ovaries: Right ovary measures 6.3 x 2.4 x 5.7 cm. There is a 5.3 x 3.3 x 5.0 cm cyst in the right ovary which is increased slightly in size compared to 08/08/2019. The cyst has a peripheral nodular component which is not significantly changed. Doppler evaluation demonstrates arterial flow in the visualized right ovarian tissue. Left ovary measures 2.8 x 0.9 x 2.2 cm and has a normal sonographic appearance. Other: No free pelvic fluid. Limited scanning through the kidneys shows no hydronephrosis. IMPRESSION: 1. Thickened endometrium with microcystic changes in postmenopausal female. Recommend gynecology consultation to evaluate for biopsy. 2. 5.3 x 3.3 x 5.0 cm right ovarian cyst with peripheral nodular component. Lesion is slightly increased in size compared to the 08/08/2019 study. Findings suspicious for cystic neoplastic process including both benign and malignant etiologies. Recommend gynecology consultation. 3. No evidence of right ovarian torsion on the current study. Please note ultrasound cannot exclude intermittent ovarian torsion. Dictated by: Tanika Ledesma MD, PhD on 11/28/2019 at 11:13 Approved by: Tanika Ledesma MD, PhD on 11/28/2019 at 11:29
== END 2019-11-28 12:44 | disposition home or self-care (01) ==
PROVIDERS: Emergency Provider Emergency Medicine
DX: R10.32 Left lower quadrant pain (principal); N83.201 Unspecified ovarian cyst, right side
CPT/HCPCS: 36415; 74177; 76830; 76857; 80053; 81003; 83690; 85025; 93005; 96361; 96374; 96375; 96376; 99284; 99285; J1170; J1885; J2405; Q9967

== ENCOUNTER 2021-10-13 08:21 | Emergency (ER) | payer MEDICARE, SELFPAY ==
[2021-10-13] VITALS (11 sets, daily range): BP systolic 145–156; BP diastolic 82–94; PULSE 58–78; RESP 16–18; TEMP 36.8; O2SAT 94–99; BMI 31.1
--- NOTE | 2021-10-13 10:29 | ED.EYEPROB ---
HPI - Eye Problem General Chief complaint: Eye Problems Stated complaint: Changes in vision- blurry Time Seen by Provider: 10/13/21 10:20 Source: patient and family Mode of arrival: Ambulatory History of Present Illness HPI Narrative: Patient is a 71-year-old female with history of hypertension hyperlipidemia with known history of a cataract right eye. She has an appointment with an senior administrator support TAVR CT Drops fixed in November. However she says yesterday her vision got significantly more cloudy. He says she really is unable to see out of her right eye she says it is more cloudy and blurry. She still is able to see. Her glasses are not working she says she got a new prescription within the year. She is sensitive to light. Left eye his similar but not as bad as the right. She says yesterday gradually got worse. She has no blackening or loss of vision. She does not have any floaters. She does not see any apply scopes or halos around all lytes. She has no numbness tingling weakness no facial droop or difficulty speaking. The prior history of stroke. Related Data Home Medications Medication Instructions Recorded Confirmed aspirin 81 mg tablet,delayed 81 mg PO BEDTIME 09/06/18 11/28/19 release (Aspir-) cholecalciferol (vitamin D3) 50 2,000 unit PO BEDTIME 09/06/18 11/28/19 mcg (2,000 unit) capsule fenofibrate micronized 134 mg 134 mg PO BEDTIME 09/06/18 11/28/19 capsule lovastatin 40 mg tablet 40 mg PO BEDTIME 09/06/18 11/28/19 multivitamin (Daily Multi-Vitamin) 1 tab PO BEDTIME 09/06/18 11/28/19 valacyclovir 500 mg tablet 500 mg PO BEDTIME 09/06/18 11/28/19 losartan 100 0.5 tab PO BEDTIME 08/08/19 11/28/19 mg-hydrochlorothiazide 25 mg tablet Previous Rx's Medication Instructions Recorded ketorolac 10 mg tablet 10 mg PO Q6H PRN #14 tab 08/08/19 ondansetron HCl 4 mg tablet 4 mg PO Q6H PRN #15 tab 11/28/19 (Zofran) oxycodone-acetaminophen 10 mg-325 1 tab PO Q8H PRN #12 tab 11/28/19 mg tablet (Percocet) Allergies Allergy/AdvReac Type Severity Reaction Status Date / Time Penicillins Allergy Severe trouble Verified 11/28/19 07:34 breathing Review of Systems Review of Systems Narrative: GENERAL: Denies chills, fatigue, malaise, fever, sweats, travel HEENT: See HPI RESPIRATORY: Denies dyspnea, cough, wheezing, hemoptysis, sputum. CARDIOVASCULAR: Denies chest pain, palpitations, orthopnea, edema GASTROINTESTINAL: Denies nausea, vomiting, abdominal pain, diarrhea, constipation, melena. : Denies dysuria, frequency, incontinence, hematuria, urinary retention, flank pain. MUSCULOSKELETAL: Denies weakness, joint pain, or bony pain SKIN: No rash, no erythema, no pruritus NEUROLOGIC: Denies weakness, dizziness, headache, numbness, change in speech, confusion PSYCHIATRIC: No concerning psychosocial issues. 12 point review of systems is negative except for those stated above and HPI Patient History Medical History (Updated 10/13/21 @ 10:51 by Nicole Lyn DO) Ovarian cyst Surgical History History of section Hx of tubal ligation Social History marital status: housing: house Smoking Status: Never smoker Smoking Status: Never smoker Substance Use Type: does not use Exam Initial Vital Signs Initial Vital Signs: Vital Signs Temperature 98.2 F 10/13/21 08:25 Pulse Rate 78 10/13/21 08:25 Respiratory Rate 18 10/13/21 08:25 Blood Pressure 156/82 H 10/13/21 08:25 Pulse Oximetry 99 10/13/21 08:25 GENERAL: Well-appearing, well-nourished and in no acute distress. HEENT: Head atraumatic,EOMI, pupils reactive, face symmetric, moist mucous membranes EYE: Decreased read reflux and right eye red reflex more present in left eye. Pressure in right eye is 13mmHg and 11mmHg pressure in left eye 18mmHg 11mmHg Bedside ultrasound does not show any abnormality CARDIOVASCULAR: Regular rate and rhythm without murmurs, rubs or gallops. RESPIRATORY: Breath sounds equal bilaterally, no wheezes rales or rhonchi. ABDOMEN: Soft, nontender. Normoactive bowel sounds all 4 quadrants. No guarding or rebound. EXTREMITIES: Normal range of motion, no clubbing or edema. Neurovascularly intact NEUROLOGICAL: Alert and oriented x4.Normal gait and speech. Cranial nerves II through XII grossly intact. Good jvbsvx-bl-yuhl, good crwo-tj-uetf, strength equal bilaterally, no dysarthria or aphasia, sensation in tact to soft touch bilaterally, no visual changes, no facial droop SKIN: Warm, dry, no laceration, no petechiae, no rashes or lesions. Course Orders Ordered: ED Orders 10/13/21 11:01 EKG-12 Lead Stat 10/13/21 11:10 COVID19 -Nasal RAPID/Pre-Proc Stat Complete Blood Count AUTO DIFF Stat Comprehensive Metabolic Panel Stat 10/13/21 11:11 CT angio head and neck Stat 10/13/21 12:01 Urine Drug Screen, Rapid Stat Discontinued Medications Proparacaine HCl (Proparacaine 0.5% Ophth Susana) 1 drops EYE-BOTH NOW ONE Stop: 10/13/21 10:31 Last Admin: 10/13/21 10:35 Dose: 1 drop Documented by: SAVANA Vital Signs Vital signs: Vital Signs - 8 hr 10/13/21 11:55 Pulse Rate 72 Respiratory Rate 16 Blood Pressure 149/94 H Pulse Oximetry 94 MDM - Eye Problem Lab Data Result diagrams: 10/13/21 11:10 10/13/21 11:10 Labs: Lab Results 10/13/21 10/13/21 10/13/21 Range/Units 11:10 11:10 11:10 WBC 8.0 (4.5-11.0) X10^3/uL RBC 4.41 (4.0-5.2) X10^6/uL Hgb 14.6 (12.0-16.0) g/dL Hct 41.8 (36-46) % MCV 94.8 (80-100) fL MCH 33.1 (26-34) PG MCHC 34.9 (30-36) % RDW 13.7 (11.6-14.8) % Plt Count 214 (150-400) X10^3/uL Neut % (Auto) 71.0 (50-75) % Lymph % (Auto) 20.0 L (25-40) % Petroleum % (Auto) 6.9 (3-14) % Eos % (Auto) 1.6 L (2-4) % Baso % (Auto) 0.5 (0-2) % Neut # (Auto) 5700 (9910-2512) /uL Lymph # (Auto) 1600 (5455-3730) /uL Petroleum # (Auto) 500 (0-900) /uL Eos # (Auto) 100 (0-450) /uL Baso # (Auto) 0 (0-100) /uL Sodium 143 (137-145) mmol/L Potassium 3.9 (3.4-5.1) mmol/L Chloride 106 (98-107) mmol/L Carbon Dioxide 28 (22-32) mmol/L BUN 19 H (7-17) mg/dL Creatinine 1.02 (0.52-1.04) mg/dL Estimated GFR 59 L (>60) mL/min BUN/Creatinine Ratio 18.6 (6-22) Glucose 95 (80-110) mg/dL Calcium 10.3 H (8.4-10.2) mg/dL Total Bilirubin 0.8 (0.2-1.3) mg/dL AST 43 H (14-36) IU/L ALT 30 (<35) IU/L Alkaline Phosphatase 62 (38-126) U/L Total Protein 8.1 (6.3-8.2) g/dL Albumin 4.9 (3.5-5.0) g/dL Globulin 3.2 (1.7-4.1) g/dL Albumin/Globulin Ratio 1.5 (1.0-2.8) U Opiates 300ng/mL cut (Negative) Ur Oxycodone Screen (Negative) Urine Methadone Screen (Negative) Ur Barbiturates Screen (Negative) U Tricyclic Antidepress (Negative) Ur Phencyclidine Scrn (Negative) Ur Amphetamines Screen (Negative) U Methamphetamines Scrn (Negative) Ur MDMA Scrn (Ecstasy) (Negative) U Benzodiazepines Scrn (Negative) Urine Cocaine Screen (Negative) U Marijuana (THC) Screen (Negative) SARS-CoV-2 (PCR) Negative (Negative) 10/13/21 Range/Units 12:01 WBC (4.5-11.0) X10^3/uL RBC (4.0-5.2) X10^6/uL Hgb (12.0-16.0) g/dL Hct (36-46) % MCV (80-100) fL MCH (26-34) PG MCHC (30-36) % RDW (11.6-14.8) % Plt Count (150-400) X10^3/uL Neut % (Auto) (50-75) % Lymph % (Auto) (25-40) % Petroleum % (Auto) (3-14) % Eos % (Auto) (2-4) % Baso % (Auto) (0-2) % Neut # (Auto) (5442-3768) /uL Lymph # (Auto) (3469-7799) /uL Petroleum # (Auto) (0-900) /uL Eos # (Auto) (0-450) /uL Baso # (Auto) (0-100) /uL Sodium (137-145) mmol/L Potassium (3.4-5.1) mmol/L Chloride (98-107) mmol/L Carbon Dioxide (22-32) mmol/L BUN (7-17) mg/dL Creatinine (0.52-1.04) mg/dL Estimated GFR (>60) mL/min BUN/Creatinine Ratio (6-22) Glucose (80-110) mg/dL Calcium (8.4-10.2) mg/dL Total Bilirubin (0.2-1.3) mg/dL AST (14-36) IU/L ALT (<35) IU/L Alkaline Phosphatase (38-126) U/L Total Protein (6.3-8.2) g/dL Albumin (3.5-5.0) g/dL Globulin (1.7-4.1) g/dL Albumin/Globulin Ratio (1.0-2.8) U Opiates 300ng/mL cut Negative (Negative) Ur Oxycodone Screen Negative (Negative) Urine Methadone Screen Negative (Negative) Ur Barbiturates Screen Negative (Negative) U Tricyclic Antidepress Negative (Negative) Ur Phencyclidine Scrn Negative (Negative) Ur Amphetamines Screen Negative (Negative) U Methamphetamines Scrn Negative (Negative) Ur MDMA Scrn (Ecstasy) Negative (Negative) U Benzodiazepines Scrn Negative (Negative) Urine Cocaine Screen Negative (Negative) U Marijuana (THC) Screen Negative (Negative) SARS-CoV-2 (PCR) (Negative) Urine Dip Bedside Urine Glucose Negative Bedside Urine Bilirubin - Negative Bedside Urine Ketone - Negative Urine Specific [place] 1.015 Bedside Urine Occult Blood - Negative Bedside Urine pH 6.0 Bedside Urine Protein - Negative Bedside Urine Urobilinogen - Negative Bedside Urine Nitrite - Negative Bedside Urine Leukocytes - Negative Esterase Imaging Data CTA - brain/neck: Radiologist's Impression: Signed Patient: Rachell Zapata MR#: [id number] : 1950 Acct:[id number] Age/Sex: 71 / F Date of Service: 10/13/21 Loc: ED Accession Number: [id number] ?? Procedure: CT angio head and neck Ordering Provider: Nicole Lyn D.O. PROCEDURE:? CT ANGIO HEAD AND NECK ? INDICATIONS:? right visual changes x 24 hours ? TECHNIQUE:? Pre-contrast 4.5 mm thick sections acquired from the foramen magnum to the vertex.? After the administration of intravenous contrast, 1 mm thick sections acquired from the aortic arch through the [place] of [place].? Post-contrast 4.5 mm thick sections then re-acquired from the foramen magnum to the vertex.? 3-dimensional dgdkwux-zhnqymdqf-dleuxyqpdi (MIP) and/or volume rendering reformats were acquired of the central intracranial vasculature and neck separately. For radiation dose reduction, the following was used:? automated exposure control, adjustment of mA and/or kV according to patient size.? ? COMPARISON:? None. ? FINDINGS:? Image quality:? Mild streak artifact can be seen through the skull base.? Limited by bolus timing, with venous contamination. ? BRAIN:? CSF spaces:? Ventricles are normal in size and shape.? Basal cisterns are patent.? No extra-axial fluid collections.? ? Brain:? No midline shift.? No intracranial bleeds or masses.? Ca-white matter interface appears intact.? ? Skull and face:? Calvarium and facial bones appear intact, without suspicious lesions.? Orbits appear normal.? ? Sinuses:? Sinuses and mastoids are clear.? ? HEAD CT ANGIOGRAPHY:? Anterior circulation:? Intracranial internal carotid arteries are normal in size and flow.? The flow within the paired anterior cerebral arteries is normal and symmetric.? The flow within the middle cerebral arteries is normal and symmetric.? The anterior communicating artery is not definitely seen.? No aneurysms are seen.? ? Posterior circulation:? The distal right vertebral artery largely terminates in the right posterior inferior cerebellar artery.? The left V4 segment is within normal limits.? There is a normal appearing basilar artery.? Flow within the posterior cerebral arteries is normal and symmetric.? No aneurysms are seen.? ? NECK CT ANGIOGRAPHY:? Carotid system:? The great vessels demonstrate a conventional anatomy as they arise from the aortic arch.? The origins of the common carotid arteries appear patent.? The common carotid arteries demonstrate normal caliber and courses.? The bifurcation regions are both widely patent.? The internal carotid arteries demonstrate normal calibers and courses.? ? Posterior circulation:? The origins of the vertebral arteries both appear widely patent.? The more superior extracranial portions of both vertebral arteries also demonstrate normal courses and calibers.? They join to form a normal appearing basilar artery.? ? Soft tissues:? Visualized neck soft tissues demonstrate no suspicious abnormalities.? ? Bones:? No suspicious bony lesions.? Visualized cervical spine appears normally aligned.? Focal degenerative change is seen involving the C1-C2 interface anteriorly. ? ? ? IMPRESSION:? No significant abnormality is seen to explain the patient's presenting symptoms. ? No significant intracranial arterial abnormality is seen.? ? Within the arteries of the neck, no hemodynamically significant stenosis can be seen. ? ? If there is strong clinical suspicion for an acute stroke, please consider a brain MRI for further evaluation, as it is more sensitive (assuming that there is no contraindication to MRI). ? ? ? Incidental note is made of: At least moderate lower cervical spine degenerative changes ? Any quantitative measurements of stenosis were performed using NASCET criteria.? ? ? Dictated by: Juvencio Clifford M.D. on 10/13/2021 at 10:34 ? ? [facility] Narrative Medical decision making narrative: Patient has known cataract however over the last 24 hours she has worsening vision especially in her right eye she really feels unsafe to drive. 11am-Dr. Matthew ophthalmology consulted, states this is atypical for cataracts. Recommends stroke rule out and she kindly will see patient in the office today Patient does have an appointment with provider in car: But not until November. We attempted to get records however she was last the patient there in 2016 on were unable to do so. sHe has not yet re-established care Discharge Plan Departure Patient Disposition: Home Clinical Impression: Bilateral cataracts Instructions: Cataract Activity Restrictions/Additional Instructions: *You have been diagnosed with cataract *What to do: At this time workup in the emergency department is negative. His recommended that you are seen by Ophthalmology today. I spoke with Dr. Matthew earlier who is expecting you in her office. *Continue to take medications as directed *Follow up with your primary care provider in 2-3 days or call [phone] *Return to ER if you should have increasing vision changes numbness tingling weakness speech difficulty confusion facial droop, or any new, worsening or concerning symptoms Prescriptions: No Action multivitamin [Daily Multi-Vitamin] tablet 1 tab PO BEDTIME 0RF lovastatin 40 mg tablet 40 mg PO BEDTIME 0RF valacyclovir 500 mg tablet 500 mg PO BEDTIME 0RF aspirin [Aspir-81] 81 mg tablet,delayed release (DR/EC) 81 mg PO BEDTIME 0RF fenofibrate micronized 134 mg capsule 134 mg PO BEDTIME 0RF cholecalciferol (vitamin D3) 2,000 unit capsule 2,000 unit PO BEDTIME 0RF losartan-hydrochlorothiazide 100-25 mg tablet 0.5 tab PO BEDTIME 0RF ketorolac 10 mg tablet 10 mg PO Q6H PRN (Reason: pain) Qty: 14 0RF oxycodone-acetaminophen [Percocet] 10-325 mg tablet 1 tab PO Q8H PRN (Reason: pain) Qty: 12 0RF ondansetron HCl [Zofran] 4 mg tablet 4 mg PO Q6H PRN (Reason: nausea and vomiting) Qty: 15 0RF Rx Instructions: ruben 1-2 tabs darlene 6 hours as needed for nausea and vomiting Referrals: Jaki Matthew MD [Physician] -
[2021-10-13] MEDS: PROPARACAINE 0.5% OPHTH SOL 1 DROPS EYE-BOTH (10:35)
--- NOTE | 2021-10-13 11:11 | DI.CT.S_ITS ---
PROCEDURE: CT ANGIO HEAD AND NECK INDICATIONS: right visual changes x 24 hours TECHNIQUE: Pre-contrast 4.5 mm thick sections acquired from the foramen magnum to the vertex. After the administration of intravenous contrast, 1 mm thick sections acquired from the aortic arch through the [place] of [place]. Post-contrast 4.5 mm thick sections then re-acquired from the foramen magnum to the vertex. 3-dimensional fxrpxbq-xikhvyecw-huojocsvwx (MIP) and/or volume rendering reformats were acquired of the central intracranial vasculature and neck separately. For radiation dose reduction, the following was used: automated exposure control, adjustment of mA and/or kV according to patient size. COMPARISON: None. FINDINGS: Image quality: Mild streak artifact can be seen through the skull base. Limited by bolus timing, with venous contamination. BRAIN: CSF spaces: Ventricles are normal in size and shape. Basal cisterns are patent. No extra-axial fluid collections. Brain: No midline shift. No intracranial bleeds or masses. Ca-white matter interface appears intact. Skull and face: Calvarium and facial bones appear intact, without suspicious lesions. Orbits appear normal. Sinuses: Sinuses and mastoids are clear. HEAD CT ANGIOGRAPHY: Anterior circulation: Intracranial internal carotid arteries are normal in size and flow. The flow within the paired anterior cerebral arteries is normal and symmetric. The flow within the middle cerebral arteries is normal and symmetric. The anterior communicating artery is not definitely seen. No aneurysms are seen. Posterior circulation: The distal right vertebral artery largely terminates in the right posterior inferior cerebellar artery. The left V4 segment is within normal limits. There is a normal appearing basilar artery. Flow within the posterior cerebral arteries is normal and symmetric. No aneurysms are seen. NECK CT ANGIOGRAPHY: Carotid system: The great vessels demonstrate a conventional anatomy as they arise from the aortic arch. The origins of the common carotid arteries appear patent. The common carotid arteries demonstrate normal caliber and courses. The bifurcation regions are both widely patent. The internal carotid arteries demonstrate normal calibers and courses. Posterior circulation: The origins of the vertebral arteries both appear widely patent. The more superior extracranial portions of both vertebral arteries also demonstrate normal courses and calibers. They join to form a normal appearing basilar artery. Soft tissues: Visualized neck soft tissues demonstrate no suspicious abnormalities. Bones: No suspicious bony lesions. Visualized cervical spine appears normally aligned. Focal degenerative change is seen involving the C1-C2 interface anteriorly. IMPRESSION: No significant abnormality is seen to explain the patient's presenting symptoms. No significant intracranial arterial abnormality is seen. Within the arteries of the neck, no hemodynamically significant stenosis can be seen. If there is strong clinical suspicion for an acute stroke, please consider a brain MRI for further evaluation, as it is more sensitive (assuming that there is no contraindication to MRI). Incidental note is made of: At least moderate lower cervical spine degenerative changes Any quantitative measurements of stenosis were performed using NASCET criteria. Dictated by: Juvencio Clifford M.D. on 10/13/2021 at 10:34 Approved by: Juvencio Clifford M.D. on 10/13/2021 at 10:38
[2021-10-13 11:17] LABS: Add Manual Diff / Slide Review NO; Basophils Absolute Auto 0 /uL (0-100); Basophils Percent Auto 0.5 % (0-2); Eosinophils Absolute Auto 100 /uL (0-450); Eosinophils Percent Auto 1.6 % (2-4); Hematocrit 41.8 % (36-46); Hemoglobin 14.6 g/dL (12.0-16.0); Lymphocytes Absolute Auto 1600 /uL (1100-4500); Mean Corpuscular HGB Conc 34.9 % (30-36); Mean Corpuscular Hemoglobin 33.1 PG (26-34); Mean Corpuscular Volume 94.8 fL (80-100); Monocytes Absolute Auto 500 /uL (0-900); Monocytes Percent Auto 6.9 % (3-14); Neutrophils Absolute Auto 5700 /uL (1500-7000); Platelet Count 214 X10^3/uL (150-400); Red Blood Cell Count 4.41 X10^6/uL (4.0-5.2); Red Cell Distribution Width 13.7 % (11.6-14.8)
[2021-10-13 11:28] LABS: Alanine Aminotransferase 30 IU/L (<35); Albumin 4.9 g/dL (3.5-5.0); Albumin Globulin Ratio 1.5 (1.0-2.8); Alkaline Phosphatase 62 U/L (38-126); Aspartate Aminotransferase 43 IU/L (14-36); BUN Creatinine Ratio 18.6 (6-22); Bilirubin Total 0.8 mg/dL (0.2-1.3); Blood Urea Nitrogen 19 mg/dL (7-17); Calcium 10.3 mg/dL (8.4-10.2); Carbon Dioxide 28 mmol/L (22-32); Chloride 106 mmol/L (98-107); Estimated Glomerular Filt Rate 59 mL/min (>60); Globulin 3.2 g/dL (1.7-4.1); Glucose 95 mg/dL (80-110); HEMOLYSIS < 15 (0-50); Potassium 3.9 mmol/L (3.4-5.1); Sodium 143 mmol/L (137-145); Total Protein 8.1 g/dL (6.3-8.2)
[2021-10-13 11:46] LABS: COVID19 -Nasal RAPID Negative (Negative)
[2021-10-13 13:37] LABS: UR Morphine/Opiate cutoff 300 Negative (Negative); Ur Creatinine Normal (Normal); Ur Specific Gravity Normal (Normal); Urine Amphetamines Negative (Negative); Urine Barbiturates Negative (Negative); Urine Benzodiazepines Negative (Negative); Urine Cocaine Negative (Negative); Urine MDMA Negative (Negative); Urine Methadone Negative (Negative); Urine Methamphetamines Negative (Negative); Urine Oxycodone Negative (Negative); Urine Phencyclidine Negative (Negative); Urine Tetrahydrocannabinol Negative (Negative); Urine Tricyclic Antidepressant Negative (Negative); Urine pH Normal (Normal)
== END 2021-10-13 12:08 | disposition home or self-care (01) ==
PROVIDERS: Emergency Provider Emergency Medicine
DX: H26.9 Unspecified cataract (principal); H53.8 Other visual disturbances; Z20.822 Contact with and (suspected) exposure to COVID-19
CPT/HCPCS: 36415; 70496; 70498; 80053; 80305; 81003; 85025; 87635; 99284; C9803

== ENCOUNTER → 2022-12-14 10:02 | Outpatient (CLI) | payer MEDICARE, SELFPAY ==
--- NOTE | 2022-12-14 10:10 | DI.RAD.S_ITS ---
PROCEDURE: XR CHEST 2V INDICATIONS: Cough TECHNIQUE: 2 views of the chest were acquired. COMPARISON: None. FINDINGS: Surgical changes and devices: None. Lungs and pleura: Minimal appearance of increased pulmonary vascularity. Mediastinum: Mediastinal contours are normal. Heart size is enlarged. Bones and chest wall: No suspicious bony abnormalities. Soft tissues appear unremarkable. IMPRESSION: Cardiomegaly increased vascularity suggestive of edema. Dictated by: Rachelle Garcia M.D. on 12/14/2022 at 14:17 Approved by: Rachelle Garcia M.D. on 12/14/2022 at 14:18
[2022-12-14 11:04] LABS: Influenza A - CEPHEID Flu A NEGATIVE (NEGATIVE); Influenza B - CEPHEID Flu B NEGATIVE (NEGATIVE); Respiratory Syncytial Virus Negative (Negative)
[2022-12-14 11:09] LABS: COVID-19 CEPHEID 4-PLEX PCR Negative (Negative)
== END ==
PROVIDERS: Referring Provider Nurse Practitioner Family; Visit Provider Nurse Practitioner Family
DX: J02.9 Acute pharyngitis, unspecified (principal); R05.1 Acute cough; I51.7 Cardiomegaly
CPT/HCPCS: 0241U; 71046; 87070

== ENCOUNTER 2022-12-14 17:55 | Emergency (ER) | payer MEDICARE, SELFPAY ==
[2022-12-14] VITALS (8 sets, daily range): BP systolic 161–179; BP diastolic 86–104; PULSE 60–85; RESP 16–18; TEMP 36.7; O2SAT 95–97; BMI 32.8
[2022-12-14 18:36] LABS: Add Manual Diff / Slide Review NO; Basophils Absolute Auto 0 /uL (0-100); Basophils Percent Auto 0.5 % (0-2); Eosinophils Absolute Auto 200 /uL (0-450); Eosinophils Percent Auto 3.6 % (2-4); Hematocrit 40.9 % (36-46); Hemoglobin 14.3 g/dL (12.0-16.0); Lymphocytes Absolute Auto 1600 /uL (1100-4500); Lymphocytes Percent Auto 28.7 % (25-40); Mean Corpuscular HGB Conc 34.9 % (30-36); Mean Corpuscular Hemoglobin 33.3 PG (26-34); Mean Corpuscular Volume 95.3 fL (80-100); Monocytes Absolute Auto 700 /uL (0-900); Neutrophils Absolute Auto 3100 /uL (1500-7000); Neutrophils Percent Auto 55.2 % (50-75); Platelet Count 207 X10^3/uL (150-400); Red Blood Cell Count 4.29 X10^6/uL (4.0-5.2); Red Cell Distribution Width 13.5 % (11.6-14.8); White Blood Cell Count 5.6 X10^3/uL (4.5-11.0)
[2022-12-14 18:44] LABS: INR 1.1 (0.9-1.3); Prothrombin Time 12.3 SECONDS (10.1-12.7)
[2022-12-14 18:47] LABS: Lactate (Lactic Acid) 1.1 mmol/L (0.7-2.1)
[2022-12-14 18:49] LABS: Alanine Aminotransferase 32 IU/L (<35); Albumin 4.6 g/dL (3.5-5.0); Albumin Globulin Ratio 1.5 (1.0-2.8); Alkaline Phosphatase 57 U/L (38-126); Aspartate Aminotransferase 43 IU/L (14-36); BUN Creatinine Ratio 24.2 (6-22); Bilirubin Total 0.8 mg/dL (0.2-1.3); Blood Urea Nitrogen 24 mg/dL (7-17); Calcium 9.9 mg/dL (8.4-10.2); Carbon Dioxide 27 mmol/L (22-32); Chloride 106 mmol/L (98-107); Estimated Glomerular Filt Rate > 60 mL/min (>60); Glucose 96 mg/dL (80-110); HEMOLYSIS 23 (0-50); Sodium 140 mmol/L (137-145); Total Protein 7.6 g/dL (6.3-8.2)
[2022-12-14 19:00] LABS: NT-proBNP (BNP-Adult 18+) 49 pg/mL (<125); Troponin I < 0.012 ng/mL (0.01-0.034)
--- NOTE | 2022-12-14 19:51 | ED_ITS ---
HPI - SOB/Dyspnea General Chief Complaint: Shortness of Breath/Dyspnea Stated Complaint: Sent by [facility], Cough, Chest tightness Time Seen by Provider: 12/14/22 19:42 Source: patient Mode of arrival: Ambulatory Limitations: no limitations History of Present Illness HPI Narrative: This is a 72-year-old female with history of hypertension, dyslipidemia on aspirin 81 mg daily with complaint of a dry cough, some chest congestion, sore throat that started SundayDecember 11. Patient states she is had some hoarseness as well. She denies fevers she felt a little chilled yesterday. No chest pain or pressure, no nasal congestion. She feels little short of breath when she coughs. No pleuritic chest pain. No nausea no vomiting, no diarrhea constipation, no urinary symptoms. No new swelling in her extremities. Patient was at an urgent care had for Plex influenza, RSV and COVID swab which was negative, throat culture which is pending, chest x-ray that showed some cardiomegaly and possible edema and was told to come to the ER. Patient states no known cardiac history other than hypertension dyslipidemia, no prior cardiac stents. She does check her blood pressure fairly regularly and runs 120s to 130s with a diastolic of 70s to 80s typically. She states she is feeling quite anxious today she was told to come to the ER. No tobacco, 1 or 2 alcoholic drinks daily, no illicit. Her primary care is Dr. Decker with [facility]. Related Data Home Medications Medication Instructions Recorded Confirmed aspirin 81 mg tablet,delayed 81 mg PO BEDTIME 09/06/18 11/28/19 release (Aspir-) cholecalciferol (vitamin D3) 50 2,000 unit PO BEDTIME 09/06/18 11/28/19 mcg (2,000 unit) capsule fenofibrate micronized 134 mg 134 mg PO BEDTIME 09/06/18 11/28/19 capsule lovastatin 40 mg tablet 40 mg PO BEDTIME 09/06/18 11/28/19 multivitamin (Daily Multi-Vitamin 1 tab PO BEDTIME 09/06/18 11/28/19 tablet) valacyclovir 500 mg tablet 500 mg PO BEDTIME 09/06/18 11/28/19 losartan 100 0.5 tab PO BEDTIME 08/08/19 11/28/19 mg-hydrochlorothiazide 25 mg tablet Previous Rx's Medication Instructions Recorded ketorolac 10 mg tablet 10 mg PO Q6H PRN pain #14 tabs 08/08/19 ondansetron HCl 4 mg tablet 4 mg PO Q6H PRN nausea and 11/28/19 (Zofran) vomiting #15 tabs oxycodone-acetaminophen 10 mg-325 1 tab PO Q8H PRN pain #12 tabs 11/28/19 mg tablet (Percocet) benzonatate 100 mg capsule 200 mg PO BID PRN cough #20 caps 12/14/22 Allergies Allergy/AdvReac Type Severity Reaction Status Date / Time Penicillins Allergy Severe trouble Verified 11/28/19 07:34 breathing Review of Systems Review of Systems ROS Unobtainable: All systems reviewed & are unremarkable except as noted in HPI and below Patient History Medical History (Updated 12/14/22 @ 20:17 by Halley Hay DO) Ovarian cyst Surgical History History of section Hx of tubal ligation Social History marital status: housing: house Smoking Status: Never smoker Smoking Status: Never smoker alcohol intake frequency: 0-2 drinks per day Substance Use Type: does not use Exam Narrative Exam Narrative: GEN: well nourished, well appearing female, alert and oriented x 3, patient appears to be in mild distress. HEENT: Atraumatic, pupils are equal round reactive to light, extraocular movements are intact, nares are clear, TMs opaque fluid bilaterally, no bulge, no erythema, there is no conjunctival pallor. Throat is clear without any exudates, erythema, tonsillar enlargement or uvular deviation, patient is slightly hoarse, does have some cobblestoning in the posterior throat. HEART: Regular rate and rhythm without murmur, clicks, rubs. No JVD. No swelling bilateral lower extremities. LUNGS:Lungs clear to auscultation, no wheezes, rales, crackles, chest moves symmetrically. No tachypnea or accessory muscle use. ABD:bowel sounds normal, soft, non-tender, no guarding, rebound, rigidity, no masses noted, no hepatosplenomegaly :No CVA tenderness MSCL: Non-tender, no muscle atrophy, muscles strength 5/5 upper and lower extremities, full range of motion, normal gait NEURO:CN 2-12 intact, sensation normal SKIN: No rash, erythema or other skin changes Initial Vital Signs Initial Vital Signs: Vital Signs Temperature 98.1 F 12/14/22 18:09 Pulse Rate 85 12/14/22 18:09 Respiratory Rate 16 12/14/22 18:09 Blood Pressure 165/86 H 12/14/22 18:09 Pulse Oximetry 97 12/14/22 18:09 Oxygen Delivery Method Room Air 12/14/22 18:09 Course Orders Ordered: ED Orders 12/14/22 18:13 EKG-12 Lead Stat Measure peak expiratory flow ONCE RT Consult Eval and Treat NOW 12/14/22 18:28 Complete Blood Count AUTO DIFF Stat Comprehensive Metabolic Panel Stat Lactate (Lactic Acid) Stat NT-proBNP (BNP-Adult 18+) Stat Prothrombin Time INR Stat Troponin I Stat Vital Signs Vital signs: Vital Signs - 8 hr 12/14/22 18:09 12/14/22 18:57 12/14/22 18:58 Temperature 98.1 F Pulse Rate 85 71 Respiratory Rate 16 Blood Pressure 165/86 H Pulse Oximetry 97 97 95 Oxygen Delivery Method Room Air 12/14/22 18:58 12/14/22 19:00 12/14/22 19:00 Temperature Pulse Rate 65 Respiratory Rate 18 Blood Pressure 179/99 H 161/87 H Pulse Oximetry 97 Oxygen Delivery Method Room Air 12/14/22 19:30 12/14/22 19:30 12/14/22 19:34 Temperature Pulse Rate 60 75 Respiratory Rate Blood Pressure 162/104 H Pulse Oximetry 97 97 Oxygen Delivery Method Room Air 12/14/22 19:34 12/14/22 20:00 12/14/22 20:01 Temperature Pulse Rate 75 75 Respiratory Rate Blood Pressure 170/86 H Pulse Oximetry 97 95 Oxygen Delivery Method Room Air Room Air 12/14/22 20:01 Temperature Pulse Rate Respiratory Rate Blood Pressure 165/102 H Pulse Oximetry Oxygen Delivery Method MDM - SOB/Dyspnea Lab Data 12/14/22 18:28 12/14/22 18:28 Labs: Lab Results 12/14/22 12/14/22 12/14/22 Range/Units 18:28 18:28 18:28 WBC 5.6 (4.5-11.0) X10^3/uL RBC 4.29 (4.0-5.2) X10^6/uL Hgb 14.3 (12.0-16.0) g/dL Hct 40.9 (36-46) % MCV 95.3 (80-100) fL MCH 33.3 (26-34) PG MCHC 34.9 (30-36) % RDW 13.5 (11.6-14.8) % Plt Count 207 (150-400) X10^3/uL Neut % (Auto) 55.2 (50-75) % Lymph % (Auto) 28.7 (25-40) % [place] % (Auto) 12.0 (3-14) % Eos % (Auto) 3.6 (2-4) % Baso % (Auto) 0.5 (0-2) % Neut # (Auto) 3100 (7989-9218) /uL Lymph # (Auto) 1600 (7331-9344) /uL [place] # (Auto) 700 (0-900) /uL Eos # (Auto) 200 (0-450) /uL Baso # (Auto) 0 (0-100) /uL PT 12.3 (10.1-12.7) SECONDS INR 1.1 (0.9-1.3) Sodium 140 (137-145) mmol/L Potassium 4.0 (3.4-5.1) mmol/L Chloride 106 (98-107) mmol/L Carbon Dioxide 27 (22-32) mmol/L BUN 24 H (7-17) mg/dL Creatinine 0.99 (0.52-1.04) mg/dL Estimated GFR > 60 (>60) mL/min BUN/Creatinine Ratio 24.2 H (6-22) Glucose 96 (80-110) mg/dL Lactate (0.7-2.1) mmol/L Calcium 9.9 (8.4-10.2) mg/dL Total Bilirubin 0.8 (0.2-1.3) mg/dL AST 43 H (14-36) IU/L ALT 32 (<35) IU/L Alkaline Phosphatase 57 (38-126) U/L Troponin I < 0.012 (0.01-0.034) ng/mL NT-Pro-B Natriuret Pep 49 (<125) pg/mL Total Protein 7.6 (6.3-8.2) g/dL Albumin 4.6 (3.5-5.0) g/dL Globulin 3.0 (1.7-4.1) g/dL Albumin/Globulin Ratio 1.5 (1.0-2.8) 12/14/22 Range/Units 18:28 WBC (4.5-11.0) X10^3/uL RBC (4.0-5.2) X10^6/uL Hgb (12.0-16.0) g/dL Hct (36-46) % MCV (80-100) fL MCH (26-34) PG MCHC (30-36) % RDW (11.6-14.8) % Plt Count (150-400) X10^3/uL Neut % (Auto) (50-75) % Lymph % (Auto) (25-40) % [place] % (Auto) (3-14) % Eos % (Auto) (2-4) % Baso % (Auto) (0-2) % Neut # (Auto) (3299-3723) /uL Lymph # (Auto) (8601-0200) /uL [place] # (Auto) (0-900) /uL Eos # (Auto) (0-450) /uL Baso # (Auto) (0-100) /uL PT (10.1-12.7) SECONDS INR (0.9-1.3) Sodium (137-145) mmol/L Potassium (3.4-5.1) mmol/L Chloride (98-107) mmol/L Carbon Dioxide (22-32) mmol/L BUN (7-17) mg/dL Creatinine (0.52-1.04) mg/dL Estimated GFR (>60) mL/min BUN/Creatinine Ratio (6-22) Glucose (80-110) mg/dL Lactate 1.1 (0.7-2.1) mmol/L Calcium (8.4-10.2) mg/dL Total Bilirubin (0.2-1.3) mg/dL AST (14-36) IU/L ALT (<35) IU/L Alkaline Phosphatase (38-126) U/L Troponin I (0.01-0.034) ng/mL NT-Pro-B Natriuret Pep (<125) pg/mL Total Protein (6.3-8.2) g/dL Albumin (3.5-5.0) g/dL Globulin (1.7-4.1) g/dL Albumin/Globulin Ratio (1.0-2.8) Imaging Data Chest x-ray: Radiologist's Impression: Close Chest X-Ray (Signed) Rachelle Garcia - 12/14/22 Head/Neck CTA (Signed) Juvencio Clifford - 10/13/21 Pelvis Ultrasound (Signed) Tanika Ledesma - 11/28/19 Abdomen/Pelvis CT (Signed) Juvencio Clifford - 11/28/19 Pelvis Ultrasound (Signed) Rachelle Garcia - 08/08/19 [address] [id number] XRay Report Signed Patient: Rachell Zapata MR#: [id number] : 1950 Acct:[id number] Age/Sex: 72 / F Date of Service: 12/14/22 Loc: LAB Accession Number: [id number] ?? Procedure: XR chest 2V Ordering Provider: Joyce Ly PROCEDURE:? XR CHEST 2V ? INDICATIONS:? Cough ? TECHNIQUE:? 2 views of the chest were acquired.? ? COMPARISON:? None. ? FINDINGS:? ? Surgical changes and devices:? None.? ? Lungs and pleura:? Minimal appearance of increased pulmonary vascularity. ? Mediastinum:? Mediastinal contours are normal.? Heart size is enlarged. ? Bones and chest wall:? No suspicious bony abnormalities.? Soft tissues appear unremarkable.? ? IMPRESSION:? Cardiomegaly increased vascularity suggestive of edema. ? ? Dictated by: Rachelle Garcia M.D. on 12/14/2022 at 14:17 ? ? Approved by: Rachelle Garcia M.D. on 12/14/2022 at 14:18?? ECG Data Attestation: I personally reviewed and interpreted this ECG as follows: Interpretation: Sinus rhythm rate of 66, CO 170 QRS 80 QTC 392. No acute ST changes appreciated patient has prior from 11/28/2019 which appears similar. MDM Narrative Medical decision making narrative: This is a 72-year-old female who has symptoms appear to be infectious likely upper respiratory, she had for Plex swab with influenza, RSV and COVID which was negative, she would a throat culture which is pending and a chest x-ray which showed cardiomegaly with possible edema. Patient's exam is overall much more consistent with upper respiratory infection CBC, CMP, INR, lactate, troponin and BNP are all negative. Patient does not have prior chest x-rays available for review but has longstanding history of hypertension dyslipidemia, blood pressure is elevated today but patient admits to being quite anxious and it home typically runs 120s to 130s on normal checks. Discussed with patient she should follow-up but does not require any emergent intervention, her physician may follow with an echo. We discussed return precautions, symptomatic care for upper respiratory symptoms. Discharge Plan Departure Patient Disposition: Home Clinical Impression: Upper respiratory infection Instructions: DI for Viral Upper Respiratory Infection -- Adult Activity Restrictions/Additional Instructions: Please follow-up with your physician recheck. Your symptoms today seem consistent with an upper respiratory infection. Throat culture is pending if positive you should be contacted only 48-72 hours after it is performed. Your chest x-ray did show some cardiomegaly or enlarged heart. This is likely been present for some time. There are no prior chest x-rays available for comparison. Sure this information with your physician, they can follow-up and if felt necessary may order an ECHO. Please return if you are having new or worsening chest pain, shortness of breath, lightheadedness or passing out, new swelling of your extremities, p ersistent fevers, coughing up blood or other new or concerning changes. Prescriptions: No Action multivitamin [Daily Multi-Vitamin] tablet 1 tab PO BEDTIME lovastatin 40 mg tablet 40 mg PO BEDTIME valacyclovir 500 mg tablet 500 mg PO BEDTIME aspirin [Aspir-81] 81 mg tablet,delayed release (DR/EC) 81 mg PO BEDTIME fenofibrate micronized 134 mg capsule 134 mg PO BEDTIME cholecalciferol (vitamin D3) 2,000 unit capsule 2,000 unit PO BEDTIME benzonatate 100 mg capsule 200 mg PO BID PRN (Reason: cough) Qty: 20 0RF losartan-hydrochlorothiazide 100-25 mg tablet 0.5 tab PO BEDTIME ketorolac 10 mg tablet 10 mg PO Q6H PRN (Reason: pain) Qty: 14 0RF oxycodone-acetaminophen [Percocet] 10-325 mg tablet 1 tab PO Q8H PRN (Reason: pain) Qty: 12 0RF ondansetron HCl [Zofran] 4 mg tablet 4 mg PO Q6H PRN (Reason: nausea and vomiting) Qty: 15 0RF Rx Instructions: ruben 1-2 tabs darlene 6 hours as needed for nausea and vomiting Stand Alone Forms: Patient Portal/API
== END 2022-12-14 20:33 | disposition home or self-care (01) ==
PROVIDERS: Emergency Provider Emergency Medicine
DX: J06.9 Acute upper respiratory infection, unspecified (principal); I11.9 Hypertensive heart disease without heart failure; J02.9 Acute pharyngitis, unspecified; R05.1 Acute cough; I51.7 Cardiomegaly
CPT/HCPCS: 0241U; 36415; 71046; 80053; 83605; 83880; 84484; 85025; 85610; 87070; 93005; 93010; 99283

== ENCOUNTER → 2024-05-22 10:23 | Outpatient (CLI) | payer MEDICARE, SELFPAY ==
[2024-05-22 11:47] LABS: Influenza A - CEPHEID Flu A NEGATIVE (NEGATIVE); Influenza B - CEPHEID Flu B NEGATIVE (NEGATIVE); Respiratory Syncytial Virus Negative (Negative)
[2024-05-22 11:52] LABS: COVID-19 CEPHEID 4-PLEX PCR Negative (Negative)
== END ==
PROVIDERS: Visit Provider Physician Assistant
DX: Z20.828 Contact with and (suspected) exposure to other viral communicable diseases (principal)
CPT/HCPCS: 0241U